=== PATIENT | male | born 1970 | race Caucasian/White ===

== ENCOUNTER → 2018-06-08 | Outpatient (CLI) | payer BC ==
--- NOTE | 2018-06-08 11:54 | RAD ---
CT HEAD WO CONTRAST Indication: DIZZINESS AND GIDDINESS TODAY AND 1 DAY LAST WEEK Exposure: One or more of the following individualized dose reduction techniques were utilized for this examination: 1. Automated exposure control 2. Adjustment of the mA and/or kV according to patient size 3. Use of iterative reconstruction technique. Comparison: None are available. Contrast: None FINDINGS: Posterior fossa is unremarkable. No evidence of acute intracranial hemorrhage or abnormal extra-axial fluid collection. No evidence of mass effect or midline shift. Mild prominence of ventricles and sulci suggesting mild atrophy or involutional change. Areas of white matter low-density, particularly in the subcortical distribution bilaterally. Visualized orbits are unremarkable. Visualized paranasal sinuses and mastoids are clear. No acute calvarial abnormality. Impression: 1. Mild patchy areas of subcortical white matter hypoattenuation bilaterally. Nonspecific, but considerations include small vessel ischemic disease, demyelination or vasculitis. MR brain could be of benefit for further evaluation. 2. Mild atrophic or involutional changes. 3. No evidence of acute intracranial hemorrhage or mass effect. Electronically signed by: Anson Longo MD (06/08/2018 11:50 AM) [facility]
== END | disposition home or self-care (01) ==
LOC: CT 11:31
PROVIDERS: ATTEND Family Medicine
DX: R90.89 Other abnormal findings on diagnostic imaging of central nervous system (principal)
CPT/HCPCS: 70450

== ENCOUNTER → 2021-01-24 | Day surgery (SDC) | payer BC ==
[~2021-01-24] MED LIST: IPRATRPIUM/ALBUTEROL 0.5/2.5MG 3 ML NEBU. NEB PRN; IV RINGERS SOLUTION,LACTATED 1,000 ML IV SCH; LIDOCAINE 2% PF 5 ML VIAL. ONE; MIDAZOLAM HCL PF 2 MG/2 ML VIAL. IV ONE; ONDANSETRON PF 4 MG/2 ML VIAL. IV PRN; PROPOFOL 10,000 MCG/ML (20ML) VIAL IV ONE; metformin PO
[2021-01-24 12:31] VITALS: BP 151/82
== END | disposition home or self-care (01) ==
LOC: SURG 09:58
PROVIDERS: ATTEND Internal Medicine Gastroenterology
DX: Z12.11 Encounter for screening for malignant neoplasm of colon (principal); K64.8 Other hemorrhoids; K63.89 Other specified diseases of intestine; Z79.84 Long term (current) use of oral hypoglycemic drugs; Z79.899 Other long term (current) drug therapy; Z98.890 Other specified postprocedural states
CPT/HCPCS: 45378; J2001; J2704; J7120